=== PATIENT | male | born 1965 | race Caucasian/White ===

== ENCOUNTER 2024-12-26 09:16 | Inpatient (IN) ==
--- NOTE | 2024-12-26 09:31 | DR.SOBA ---
HPI Time Seen Time Seen by Provider: 12/26/24 09:31 COVID-19 Coronavirus risk:travel/contact w/high risk person: No Has patient experienced Coronavirus symptoms: No PMH Travel Risk Coronavirus risk:travel/contact w/high risk person: No Has patient experienced Coronavirus symptoms: No Infectious screening Isolation: Standard PE Vital Signs Vitals: Vital Signs Temperature 98.7 F Pulse Rate 95 Pulse Rate 101 Pulse Rate 97 Pulse Rate 98 Pulse Rate 98 Pulse Rate 94 Pulse Rate 98 Pulse Rate 93 Pulse Rate 100 Pulse Rate 101 Pulse Rate 96 Pulse Rate 103 Pulse Rate 106 Pulse Rate 96 Pulse Rate 98 Pulse Rate 100 Pulse Rate 100 Respiratory Rate 29 Respiratory Rate 33 Respiratory Rate 25 Respiratory Rate 34 Respiratory Rate 34 Respiratory Rate 35 Respiratory Rate 34 Respiratory Rate 35 Respiratory Rate 37 Respiratory Rate 36 Respiratory Rate 35 Respiratory Rate 39 Respiratory Rate 39 Respiratory Rate 39 Respiratory Rate 33 Respiratory Rate 29 Respiratory Rate 33 Blood Pressure 175/98 Blood Pressure 190/90 Blood Pressure 190/90 Blood Pressure 190/90 Blood Pressure 190/90 Blood Pressure 223/95 Blood Pressure 191/104 Blood Pressure 205/108 Blood Pressure 177/96 Blood Pressure 176/92 O2 Sat by Pulse Oximetry 95 O2 Sat by Pulse Oximetry 95 O2 Sat by Pulse Oximetry 94 O2 Sat by Pulse Oximetry 92 O2 Sat by Pulse Oximetry 93 O2 Sat by Pulse Oximetry 92 O2 Sat by Pulse Oximetry 93 O2 Sat by Pulse Oximetry 92 O2 Sat by Pulse Oximetry 94 O2 Sat by Pulse Oximetry 93 O2 Sat by Pulse Oximetry 100 O2 Sat by Pulse Oximetry 88 O2 Sat by Pulse Oximetry 85 O2 Sat by Pulse Oximetry 91 O2 Sat by Pulse Oximetry 92 O2 Sat by Pulse Oximetry 84 O2 Sat by Pulse Oximetry 86 ROR Labs Reviewed 12/26/24 09:42 12/26/24 09:42 Laboratory: WBC 16.0 X10^3/uL (3.6-10.0) H 12/26/24 09:42 RBC 4.47 X10^6/uL (4.7-6.0) L 12/26/24 09:42 Hgb 11.2 g/dL (13.5-18.0) L 12/26/24 09:42 Hct 34.7 % (42.0-54.0) L 12/26/24 09:42 MCV 77.7 fL (80.0-100.0) L 12/26/24 09:42 MCH 25.1 pg (27.0-34.0) L 12/26/24 09:42 MCHC 32.4 g/dL (33.0-35.0) L 12/26/24 09:42 RDW 18.0 % (11.6-16.5) H 12/26/24 09:42 Plt Count 291 X10^3/uL (150.0-450.0) 12/26/24 09:42 MPV 9.3 fL (7.4-11.0) 12/26/24 09:42 Neut % (Auto) 89.7 % (42.0-75.0) H 12/26/24 09:42 Lymph % (Auto) 4.9 % (21.0-51.0) L 12/26/24 09:42 [place] % (Auto) 5.2 % (0.0-13.0) 12/26/24 09:42 Eos % (Auto) 0.2 % (0.9-2.9) L 12/26/24 09:42 Baso % (Auto) 0 % (0.2-1.0) L 12/26/24 09:42 Neut # (Auto) 14.3 x10^3/uL (2.2-4.8) H 12/26/24 09:42 Lymph # (Auto) 0.8 X10^3/uL (1.3-2.9) L 12/26/24 09:42 [place] # (Auto) 0.8 x10^3/uL (0.3-0.8) 12/26/24 09:42 Eos # (Auto) 0.0 x10^3/uL (0.0-0.2) 12/26/24 09:42 Baso # (Auto) 0.0 X10^3/uL (0.0-0.1) 12/26/24 09:42 Absolute Nucleated RBC 0.2 /100WBC 12/26/24 09:42 PT 14.1 SECONDS (11.8-14.3) 12/26/24 09:40 INR Target Range - 12/26/24 09:40 INR 1.11 (0.8-1.3) 12/26/24 09:40 APTT 30.9 SECONDS (22.9-36.5) 12/26/24 09:40 PTT Comment - 12/26/24 09:40 D-Dimer 1.20 ug/ml (0.0-0.57) H 12/26/24 09:42 Sample Site Lr 12/26/24 10:05 ABG pH 7.450 (7.35-7.45) 12/26/24 10:05 ABG pCO2 42.0 mmHg (35.0-45.0) 12/26/24 10:05 ABG pO2 48.0 mmHg (80.0-100.0) L* 12/26/24 10:05 ABG HCO3 29.2 mmol/L (22-26) H 12/26/24 10:05 ABG O2 Saturation 85.0 % (90-100) L 12/26/24 10:05 ABG Base Excess 4.7 mmol/L (-2.0-2.0) H 12/26/24 10:05 Douglas Test Pos 12/26/24 10:05 A-a Gradient 49.0 mmHg 12/26/24 10:05 FiO2 21.0 12/26/24 10:05 Blood Gas Comments Pt padmini well. kg 12/26/24 10:05 Sodium 140 mmol/L (136-145) 12/26/24 09:42 Corrected Sodium 140 mmol/L (136-145) 12/26/24 09:42 Potassium 5.0 mmol/L (3.5-5.1) 12/26/24 09:42 Chloride 105 mmol/L (98-107) 12/26/24 09:42 Carbon Dioxide 28.8 mmol/L (21-32) 12/26/24 09:42 BUN 28 mg/dL (7-18) H 12/26/24 09:42 Creatinine 2.61 mg/dL (0.70-1.30) H 12/26/24 09:42 Est GFR (MDRD) Af Amer 33 (>60) L 12/26/24 09:42 Est GFR (MDRD) Non-Af 27 (>60) L 12/26/24 09:42 Glucose 118 mg/dL (65-99) H 12/26/24 09:42 Calcium 8.7 mg/dL (8.5-10.1) 12/26/24 09:42 Corrected Calcium 10.0 mg/dL (8.5-10.1) 12/26/24 09:42 Total Bilirubin 0.50 mg/dL (0.2-1.0) 12/26/24 09:42 AST 32 Units/L (15-37) 12/26/24 09:42 ALT 40 Units/L (12-78) 12/26/24 09:42 Alkaline Phosphatase 124 Units/L (46-116) H 12/26/24 09:42 Creatine Kinase 75 Units/L (39-308) 12/26/24 09:42 Troponin I High Sens 43.4 ng/L (4.0-60.0) 12/26/24 09:42 B-Natriuretic Peptide 1650 pg/mL (0-79) H 12/26/24 09:42 Total Protein 7.3 g/dL (6.4-8.2) 12/26/24 09:42 Albumin 2.4 g/dL (3.4-5.0) L 12/26/24 09:42 Globulin 4.9 g/dL (2.5-4.5) H 12/26/24 09:42 Albumin/Globulin Ratio 0.5 Ratio (1.1-2.1) L 12/26/24 09:42 Specimen Type Clean catch urine 12/26/24 09:28 Urine Color Yellow (YELLOW) 12/26/24 09:28 Urine Appearance Clear (CLEAR) 12/26/24 09:28 Urine pH 7.0 (5.0 - 8.0) 12/26/24 09:28 Ur Specific [place] 1.010 (1.000-1.030) 12/26/24 09:28 Urine Protein 4+ (NEGATIVE) 12/26/24 09:28 Urine Glucose (UA) Negative (NEGATIVE) 12/26/24 09:28 Urine Ketones Negative (NEGATIVE) 12/26/24 09: Urine Blood 1+ (NEGATIVE) 12/26/24: Urine Nitrite Negative (NEGATIVE) 12/26/24 09:28 Urine Bilirubin Negative (NEGATIVE) 12/26/24 09:28 Urine Urobilinogen Normal (NORMAL) 12/26/24 09:28 Ur Leukocyte Esterase Negative (NEGATIVE) 12/26/24 09:28 Urine RBC 0-2 /HPF (0-3) 12/26/24 09:28 Urine WBC None seen /HPF (0-5) 12/26/24 09:28 Ur Squamous Epith Cells Rare /HPF (NEGATIVE) 12/26/24 09:28 Urine Bacteria Negative /HPF (NEGATIVE) 12/26/24 09:28 Urine Mucus Rare /HPF (NEGATIVE) 12/26/24 09:28 Ur Culture Indicated? No/not indicated 12/26/24 09:28 SARS-CoV-2 (PCR) Negative (NEGATIVE) 12/26/24 09:44 Influenza Type A (PCR) Negative (NEGATIVE) 12/26/24 09:44 Influenza Type B (PCR) Negative (NEGATIVE) 12/26/24 09:44 RSV (PCR) Negative (NEGATIVE) 12/26/24 09:44 Opioid Opioid Risk Tool Age (Andrew box if 16-45): No History of Preadolescent Sexual Abuse: No Total: 0 Total Score Risk Category: Low Risk Copyright: Buster NICHOLS predicting aberrant behaviors Discharge Plan Discharge Plan Patient Disposition: 01 HOME, SELF-CARE Condition: Stable Orders to Discharge Patient Discharge Orders: Transfer (Routine); Ordered 12/26/24 Ordered By: DEISI ADAMS
[2024-12-26 09:40] VITALS: BMI 51.8
[2024-12-26] MEDS: DUONEB 0.5 MG/3 MG (3 mL) NEB ONE (09:51)
[2024-12-26 09:52] LABS: BASOPHILS % (AUTO) 0 % (0.2-1.0); EOSINOPHILS % (AUTO) 0.2 % (0.9-2.9); HEMATOCRIT 34.7 % (42.0-54.0); HEMOGLOBIN 11.2 g/dL (13.5-18.0); LYMPHOCYTES # (AUTO) 0.8 X10^3/uL (1.3-2.9); LYMPHOCYTES % (AUTO) 4.9 % (21.0-51.0); MEAN CORPUSCULAR HEMOGLOBIN 25.1 pg (27.0-34.0); MEAN CORPUSCULAR HGB CONC 32.4 g/dL (33.0-35.0); MEAN CORPUSCULAR VOLUME 77.7 fL (80.0-100.0); MEAN PLATELET VOLUME 9.3 fL (7.4-11.0); MONOCYTES # (AUTO) 0.8 x10^3/uL (0.3-0.8); MONOCYTES % (AUTO) 5.2 % (0.0-13.0); NEUTROPHILS # (AUTO) 14.3 x10^3/uL (2.2-4.8); NEUTROPHILS % (AUTO) 89.7 % (42.0-75.0); PLATELET COUNT 291 X10^3/uL (150.0-450.0); RED BLOOD COUNT 4.47 X10^6/uL (4.7-6.0)
[2024-12-26] MEDS: LASIX IVP ONE (09:52)
[2024-12-26] MEDS: SOLU-Medrol 125 MG VIAL IVP ONE (09:52)
--- NOTE | 2024-12-26 10:00 | EKG ---
Test Reason : HTN Blood Pressure : */* mmHG Vent. Rate : 106 BPM Atrial Rate : 106 BPM P-R Int : 152 ms QRS Dur : 82 ms QT Int : 350 ms P-R-T Axes : 45 -32 75 degrees QTc Int : 464 ms Sinus tachycardia Possible Left atrial enlargement Left axis deviation Anteroseptal infarct , age undetermined Abnormal ECG No previous ECGs available Confirmed by Omari Au MD ([id number]) on 12/26/2024 1:22:18 PM Referred By: Confirmed By: Omari Au MD
[2024-12-26 10:10] LABS: ABG BASE EXCESS 4.7 mmol/L (-2.0-2.0); ABG HCO3 29.2 mmol/L (22-26)
[2024-12-26 10:12] LABS: ABG ALLEN TEST POS
[2024-12-26 10:16] LABS: BILIRUBIN,URINE NEGATIVE (NEGATIVE); BLOOD/HEMOGLOBIN,URINE 1+ (NEGATIVE); GLUCOSE, URINE NEGATIVE (NEGATIVE); KETONES,URINE NEGATIVE (NEGATIVE); LEUKOCYTE ESTERASE ,URINE NEGATIVE (NEGATIVE); NITRITES,URINE NEGATIVE (NEGATIVE); PROTEIN,URINE 4+ (NEGATIVE); UROBILINOGEN,URINE NORMAL (NORMAL)
[2024-12-26 10:17] LABS: ALBUMIN 2.4 g/dL (3.4-5.0); CALCIUM 8.7 mg/dL (8.5-10.1); CARBON DIOXIDE 28.8 mmol/L (21-32); CREATININE 2.61 mg/dL (0.70-1.30); TOTAL PROTEIN 7.3 g/dL (6.4-8.2)
[2024-12-26 10:28] LABS: APPEARANCE,URINE CLEAR (CLEAR); COLOR,URINE YELLOW (YELLOW)
[2024-12-26 10:44] LABS: BACTERIA,URINE NEGATIVE /HPF (NEGATIVE); RBC,URINE 0-2 /HPF (0-3); SQUAMOUS EPITHELIAL CELL,UR RARE /HPF (NEGATIVE)
--- NOTE | 2024-12-26 11:10 | RAD ---
EXAM: CHEST, 1 VIEW HISTORY: SOB; COMPARISON: No relevant prior studies were available for comparison at the time of interpretation. TECHNIQUE: CHEST, 1 VIEW FINDINGS: Chest: Lines and tubes: Cardiac leads overlie the chest. Mediastinum: Cardiomegaly. Pulmonary vessels: There is pulmonary vascular congestion. Lung ramsey: Patchy opacities are seen Pleura: No effusion. No pneumothorax. Bones and soft tissues: No acute osseous or soft tissue abnormality. IMPRESSION: 1. Findings suggest heart failure THIS IS AN ELECTRONICALLY VERIFIED FINAL REPORT 12/26/2024 11:03 AM - Electronically signed by Jim Ware MD
[2024-12-26] MEDS: APRESOLINE INJ 20 MG VIAL IVP ONE (11:21)
[2024-12-26 12:07] LABS: INR 1.11 (0.8-1.3)
[2024-12-26] MEDS: HEPARIN SODIUM IN D5W 25,000 UNITS/500 ML BAG IV PRN (12:48)
[2024-12-26] MEDS: HEPARIN SODIUM INJ 5000 UNITS IVP ONE ×2 (12:48→20:45)
--- NOTE | 2024-12-26 12:50 | VAS ---
EXAM:LEVBILBCHBilateral lower extremity DVT ultrasound examination with Doppler imaging.HISTORY:BLE EDEMA, ELEVATED D-DIMER; . Evaluate for evidence for DVT.Bilateral lower extremity pain and swelling.COMPARISON:: NoneTECHNIQUE:Ultrasound of the deep venous vasculature of the bilateral lower extremities was performed.Color and spectral doppler imaging was utilized for the purposes of this examination as well.FINDINGS:The deep veins of both lower extremities are normal in size and configuration. No intraluminal filling defects are seen on grayscale or color flow imaging.The veins compress normally. Doppler waveforms are normal at rest and with augmentation.IMPRESSION:Negative bilateral lower extremity DVT ultrasound exam(s).THIS IS AN ELECTRONICALLY VERIFIED FINAL REPORT12/26/2024 12:46 PM - Electronically signed by Eliot Zarco MD
[2024-12-26] MEDS: HEPARIN SODIUM IN D5W 25,000 UNITS/500 ML BAG ONE (13:38)
[2024-12-26] MEDS: HEPARIN SODIUM INJ 5000 UNITS ONE (13:38)
[2024-12-26] MEDS: LASIX IVP SCH (16:45)
[2024-12-27 04:33] LABS: ABG BASE EXCESS 5.8 mmol/L (-2.0-2.0)
[2024-12-27 04:34] LABS: ABG ALLEN TEST POS; ABG HCO3 32.1 mmol/L (22-26)
[2024-12-27 05:06] LABS: BASOPHILS # (AUTO) 0.1 X10^3/uL (0.0-0.1); BASOPHILS % (AUTO) 0.9 % (0.2-1.0); EOSINOPHILS % (AUTO) 0.3 % (0.9-2.9); HEMATOCRIT 33.6 % (42.0-54.0); HEMOGLOBIN 10.7 g/dL (13.5-18.0); LYMPHOCYTES # (AUTO) 1.6 X10^3/uL (1.3-2.9); LYMPHOCYTES % (AUTO) 12.5 % (21.0-51.0); MEAN CORPUSCULAR HEMOGLOBIN 24.9 pg (27.0-34.0); MEAN CORPUSCULAR HGB CONC 31.8 g/dL (33.0-35.0); MEAN CORPUSCULAR VOLUME 78.2 fL (80.0-100.0); MEAN PLATELET VOLUME 9.9 fL (7.4-11.0); MONOCYTES # (AUTO) 0.8 x10^3/uL (0.3-0.8); MONOCYTES % (AUTO) 6.7 % (0.0-13.0); NEUTROPHILS # (AUTO) 9.9 x10^3/uL (2.2-4.8); NEUTROPHILS % (AUTO) 79.6 % (42.0-75.0); PLATELET COUNT 244 X10^3/uL (150.0-450.0); RED BLOOD COUNT 4.29 X10^6/uL (4.7-6.0); RED CELL DISTRIBUTION WIDTH 18.3 % (11.6-16.5); WHITE BLOOD COUNT 12.5 X10^3/uL (3.6-10.0)
[2024-12-27 05:31] LABS: ALANINE AMINOTRANSFERASE 32 Units/L (12-78); ALBUMIN 2.1 g/dL (3.4-5.0); ALKALINE PHOSPHATASE 107 Units/L (46-116); ASPARTATE AMINO TRANSFERASE 15 Units/L (15-37); BLOOD UREA NITROGEN 30 mg/dL (7-18); CALCIUM 8.7 mg/dL (8.5-10.1); CARBON DIOXIDE 29.6 mmol/L (21-32); CHLORIDE 105 mmol/L (98-107); COR CA(FOR HYPOALB) 10.2 mg/dL (8.5-10.1); GLUCOSE 108 mg/dL (65-99); MAGNESIUM 2.3 mg/dL (2.0-2.9); POTASSIUM 4.4 mmol/L (3.5-5.1); SODIUM 141 mmol/L (136-145); TOTAL PROTEIN 6.6 g/dL (6.4-8.2); eGFR NON BLACK RACES 27 (>60)
[2024-12-27] MEDS: HEPARIN SODIUM INJ 5000 UNITS IVP ONE (08:00)
--- NOTE | 2024-12-27 08:46 | DR.H&P ---
H&P History & Physical for Day of: H&P Date: 12/26/24 Chief Complaint Chief Complaint: SOB History of Present Illness History of Present Illness: PT IS 59ME, ER ADMISSION AFTER WE WAS SEEN AT CLINIC FOR RESP ILLNESS FOR OVER A WEEK. PT WAS SENT TO ER WITH SOB AND HYPOXIA. PT HAS PMH OF MO AND HTN. PT WAS HYPOXIC ON ABG AND UNABLE TO OBTAIN CTA DUE TO RENAL FUNCTION. PT WAS STARTED ON HEPARIN AND ADMITTED TO ICU FOR EVALUATION AND TREATMENT OF ACUTE ILLNESS. Past Medical History Past Medical History: Hypertension Past Surgical History Surgical History: Ortho Surgery Family History Family Medical History: Diabetes Mellitus, [place], Coronary Artery Disease, Heart Failure and Hypertension Social History Does patient currently use any type of tobacco product: No Type of Tobacco Use: None Does any household member use tobacco: No Alcohol Use: Occasionally Drug Use: None Medications Home Medications: Home Medications Medication Instructions Recorded Confirmed Type amlodipine 10 mg tablet 10 mg PO QDAY 12/26/24 12/26/24 History lisinopril 40 mg tablet 40 mg PO QDAY 12/26/24 12/26/24 History Allergies Allergies Allergy/AdvReac Type Severity Reaction Status Date / Time No Known Allergies Allergy Verified 12/26/24 09:25 Labs 12/27/24 04:20 12/27/24 04:20 Labs: Laboratory WBC 12.5 X10^3/uL (3.6-10.0) H 12/27/24 04:20 RBC 4.29 X10^6/uL (4.7-6.0) L 12/27/24 04:20 Hgb 10.7 g/dL (13.5-18.0) L 12/27/24 04:20 Hct 33.6 % (42.0-54.0) L 12/27/24 04:20 MCV 78.2 fL (80.0-100.0) L 12/27/24 04:20 MCH 24.9 pg (27.0-34.0) L 12/27/24 04:20 MCHC 31.8 g/dL (33.0-35.0) L 12/27/24 04:20 RDW 18.3 % (11.6-16.5) H 12/27/24 04:20 Plt Count 244 X10^3/uL (150.0-450.0) 12/27/24 04:20 MPV 9.9 fL (7.4-11.0) 12/27/24 04:20 Neut % (Auto) 79.6 % (42.0-75.0) H 12/27/24 04:20 Lymph % (Auto) 12.5 % (21.0-51.0) L 12/27/24 04:20 [place] % (Auto) 6.7 % (0.0-13.0) 12/27/24 04:20 Eos % (Auto) 0.3 % (0.9-2.9) L 12/27/24 04:20 Baso % (Auto) 0.9 % (0.2-1.0) 12/27/24 04:20 Neut # (Auto) 9.9 x10^3/uL (2.2-4.8) H 12/27/24 04:20 Lymph # (Auto) 1.6 X10^3/uL (1.3-2.9) 12/27/24 04:20 [place] # (Auto) 0.8 x10^3/uL (0.3-0.8) 12/27/24 04:20 Eos # (Auto) 0.0 x10^3/uL (0.0-0.2) 12/27/24 04:20 Baso # (Auto) 0.1 X10^3/uL (0.0-0.1) 12/27/24 04:20 Absolute Nucleated RBC 0.1 /100WBC 12/27/24 04:20 PT 14.1 SECONDS (11.8-14.3) 12/26/24 09:40 INR Target Range - 12/26/24 09:40 INR 1.11 (0.8-1.3) 12/26/24 09:40 APTT 58.4 SECONDS (22.9-36.5) H 12/27/24 07:10 PTT Comment - 12/27/24 07:10 D-Dimer 1.20 ug/ml (0.0-0.57) H 12/26/24 09:42 Sample Site Lr 12/27/24 04:27 ABG pH 7.390 (7.35-7.45) 12/27/24 04:27 ABG pCO2 53.0 mmHg (35.0-45.0) H* 12/27/24 04:27 ABG pO2 58.0 mmHg (80.0-100.0) L 12/27/24 04:27 ABG HCO3 32.1 mmol/L (22-26) H* 12/27/24 04:27 ABG O2 Saturation 89.0 % (90-100) L 12/27/24 04:27 ABG Base Excess 5.8 mmol/L (-2.0-2.0) H 12/27/24 04:27 Douglas Test Pos 12/27/24 04:27 A-a Gradient 132.0 mmHg 12/27/24 04:27 FiO2 36.0 12/27/24 04:27 Blood Gas Comments Matt well ae 12/27/24 04:27 Sodium 141 mmol/L (136-145) 12/27/24 04:20 Corrected Sodium TNP 12/27/24 04:20 Potassium 4.4 mmol/L (3.5-5.1) 12/27/24 04:20 Chloride 105 mmol/L (98-107) 12/27/24 04:20 Carbon Dioxide 29.6 mmol/L (21-32) 12/27/24 04:20 BUN 30 mg/dL (7-18) H 12/27/24 04:20 Creatinine 2.60 mg/dL (0.70-1.30) H 12/27/24 04:20 Est GFR (MDRD) Af Amer 33 (>60) L 12/27/24 04:20 Est GFR (MDRD) Non-Af 27 (>60) L 12/27/24 04:20 Glucose 108 mg/dL (65-99) H 12/27/24 04:20 Calcium 8.7 mg/dL (8.5-10.1) 12/27/24 04:20 Corrected Calcium 10.2 mg/dL (8.5-10.1) H 12/27/24 04:20 Magnesium 2.3 mg/dL (2.0-2.9) 12/27/24 04:20 Total Bilirubin 0.30 mg/dL (0.2-1.0) 12/27/24 04:20 AST 15 Units/L (15-37) 12/27/24 04:20 ALT 32 Units/L (12-78) 12/27/24 04:20 Alkaline Phosphatase 107 Units/L (46-116) 12/27/24 04:20 Creatine Kinase 75 Units/L (39-308) 12/26/24 09:42 Troponin I High Sens 43.4 ng/L (4.0-60.0) 12/26/24 09:42 B-Natriuretic Peptide 1200 pg/mL (0-79) H 12/27/24 04:20 Total Protein 6.6 g/dL (6.4-8.2) 12/27/24 04:20 Albumin 2.1 g/dL (3.4-5.0) L 12/27/24 04:20 Globulin 4.5 g/dL (2.5-4.5) 12/27/24 04:20 Albumin/Globulin Ratio 0.5 Ratio (1.1-2.1) L 12/27/24 04:20 Specimen Type Clean catch urine 12/26/24 09:28 Urine Color Yellow (YELLOW) 12/26/24 09: Urine Appearance Clear (CLEAR) 12/26/24 09: Urine pH 7.0 (5.0 - 8.0) 12/26/24 09:28 Ur Specific [place] 1.010 (1.000-1.030) 12/26/24 09:28 Urine Protein 4+ (NEGATIVE) 12/26/24 09: Urine Glucose (UA) Negative (NEGATIVE) 12/26/24 09: Urine Ketones Negative (NEGATIVE) 12/26/24 09: Urine Blood 1+ (NEGATIVE) 12/26/24 09: Urine Nitrite Negative (NEGATIVE) 12/26/24 09: Urine Bilirubin Negative (NEGATIVE) 12/26/24 09:28 Urine Urobilinogen Normal (NORMAL) 12/26/24 09:28 Ur Leukocyte Esterase Negative (NEGATIVE) 12/26/24 09: Urine RBC 0-2 /HPF (0-3) 12/26/24 09: Urine WBC None seen /HPF (0-5) 12/26/24 09:28 Ur Squamous Epith Cells Rare /HPF (NEGATIVE) 12/26/24 09:28 Urine Bacteria Negative /HPF (NEGATIVE) 12/26/24 09: Urine Mucus Rare /HPF (NEGATIVE) 12/26/24 09: Ur Culture Indicated? No/not indicated 12/26/24 09:28 SARS-CoV-2 (PCR) Negative (NEGATIVE) 12/26/24 09:44 Influenza Type A (PCR) Negative (NEGATIVE) 12/26/24 09:44 Influenza Type B (PCR) Negative (NEGATIVE) 12/26/24 09:44 RSV (PCR) Negative (NEGATIVE) 12/26/24 09:44 Review of Systems Constitutional: No Symptoms Reported, Chills, Weakness and Malaise Eyes: No Symptoms Reported ENT: No Symptoms Reported Respiratory: Cough, Shortness of Breath, SOB with Excertion and Wheezing Cardiovascular: Edema Gastrointestinal: No Symptoms Reported Genitourinary: No Symptoms Reported Musculoskeletal: Back Pain Skin: No Symptoms Reported Neurological: No Symptoms Reported Physical Exam Vital Signs: Vital Signs Temperature 98.4 F Pulse Rate 104 Pulse Rate 88 Pulse Rate 88 Pulse Rate 96 Pulse Rate 70 Pulse Rate 76 Pulse Rate 90 Pulse Rate 90 Pulse Rate 88 Pulse Rate 93 Pulse Rate 81 Pulse Rate 81 Pulse Rate 77 Pulse Rate 90 Pulse Rate 69 Pulse Rate 84 Pulse Rate 87 Pulse Rate 82 Pulse Rate 84 Pulse Rate 90 Pulse Rate 82 Pulse Rate 89 Pulse Rate 88 Pulse Rate 88 Pulse Rate 72 Pulse Rate 81 Pulse Rate 72 Pulse Rate 78 Pulse Rate 76 Pulse Rate 80 Pulse Rate 83 Pulse Rate 86 Pulse Rate 83 Pulse Rate 82 Pulse Rate 83 Pulse Rate 75 Pulse Rate 86 Pulse Rate 95 Pulse Rate 95 Pulse Rate 69 Respiratory Rate 21 Respiratory Rate 23 Respiratory Rate 25 Respiratory Rate 23 Respiratory Rate 25 Respiratory Rate 24 Respiratory Rate 20 Respiratory Rate 29 Respiratory Rate 18 Respiratory Rate 24 Respiratory Rate 23 Respiratory Rate 18 Respiratory Rate 22 Respiratory Rate 17 Respiratory Rate 24 Respiratory Rate 22 Respiratory Rate 23 Respiratory Rate 22 Respiratory Rate 21 Respiratory Rate 23 Respiratory Rate 29 Respiratory Rate 22 Respiratory Rate 20 Respiratory Rate 22 Respiratory Rate 21 Respiratory Rate 21 Respiratory Rate 25 Respiratory Rate 22 Respiratory Rate 24 Respiratory Rate 20 Respiratory Rate 24 Respiratory Rate 22 Respiratory Rate 24 Respiratory Rate 21 Respiratory Rate 21 Respiratory Rate 21 Respiratory Rate 20 Respiratory Rate 23 Respiratory Rate 33 Respiratory Rate 25 Blood Pressure 135/82 Blood Pressure 119/58 Blood Pressure 119/58 Blood Pressure 138/86 Blood Pressure 138/86 Blood Pressure 124/58 Blood Pressure 152/101 Blood Pressure 170/105 Blood Pressure 181/111 Blood Pressure 181/111 Blood Pressure 124/58 Blood Pressure 152/72 Blood Pressure 152/72 Blood Pressure 153/76 Blood Pressure 153/76 Blood Pressure 153/76 Blood Pressure 165/96 Blood Pressure 181/111 Blood Pressure 165/96 O2 Sat by Pulse Oximetry 94 O2 Sat by Pulse Oximetry 93 O2 Sat by Pulse Oximetry 93 O2 Sat by Pulse Oximetry 71 O2 Sat by Pulse Oximetry 92 O2 Sat by Pulse Oximetry 88 O2 Sat by Pulse Oximetry 93 O2 Sat by Pulse Oximetry 93 O2 Sat by Pulse Oximetry 94 O2 Sat by Pulse Oximetry 91 O2 Sat by Pulse Oximetry 93 O2 Sat by Pulse Oximetry 94 O2 Sat by Pulse Oximetry 92 O2 Sat by Pulse Oximetry 94 O2 Sat by Pulse Oximetry 91 O2 Sat by Pulse Oximetry 93 O2 Sat by Pulse Oximetry 93 O2 Sat by Pulse Oximetry 93 O2 Sat by Pulse Oximetry 95 O2 Sat by Pulse Oximetry 95 O2 Sat by Pulse Oximetry 93 O2 Sat by Pulse Oximetry 94 O2 Sat by Pulse Oximetry 95 O2 Sat by Pulse Oximetry 91 O2 Sat by Pulse Oximetry 91 O2 Sat by Pulse Oximetry 90 O2 Sat by Pulse Oximetry 91 O2 Sat by Pulse Oximetry 90 O2 Sat by Pulse Oximetry 91 O2 Sat by Pulse Oximetry 91 O2 Sat by Pulse Oximetry 93 O2 Sat by Pulse Oximetry 91 O2 Sat by Pulse Oximetry 93 O2 Sat by Pulse Oximetry 92 O2 Sat by Pulse Oximetry 93 O2 Sat by Pulse Oximetry 94 O2 Sat by Pulse Oximetry 95 O2 Sat by Pulse Oximetry 94 O2 Sat by Pulse Oximetry 94 O2 Sat by Pulse Oximetry 93 Oriented: Normal Eyes: Normal Ear: Normal Nose: Discharge Throat: Dry Respiratory: Diminished Throughout and Wheezes Throughout Cardiovascular: Tachycardia and Edema Auscultation: Bowel Sounds: Normal Tenderness: Normal Skin: Decreased Turgur Musculoskeletal: Back:Lumbar Psychiatric: Anxiety Mood Description: Anxious Affect: Anxious Speech Pattern: Clear and Appropriate Assessment/Plan (1) Dyspnea: Status: Acute Plan: ADMIT, ICU WITH HEPARIN DRIP VQ SCAN TO RO PE CXR ON ADMISSION REPEAT AM ABG, SUPPLEMENTAL O2, BP CONTROL CARDIAC MONITORING, IV ATBX, IV HYDRATION WITH I&OS (2) Hypoxia: Status: Acute (3) Acute CHF: Status: Acute (4) Elevated d-dimer: Status: Acute (5) HTN (hypertension): Status: Acute (6) Acute on chronic renal failure: Status: Acute
[2024-12-27] MEDS: NORVASC TAB 10 MG PO SCH (08:56)
[2024-12-27] MEDS: ZITHROMAX INJ 500 MG VIAL 500 MG in D5W 250 ML IV 250 ML IV SCH (09:33)
[2024-12-27] MEDS: NS 1,000 ML IV 1,000 ML IV SCH (09:33)
[2024-12-27] MEDS: SOLU-Medrol 125 MG VIAL IVP SCH (09:34)
[2024-12-27] MEDS: PROTONIX INJ 40 MG VIAL IVP SCH (09:34)
[2024-12-27] MEDS: ROBITUSSIN DM PO SCH (09:34)
[2024-12-27] MEDS: FLOMAX PO SCH (09:34)
--- NOTE | 2024-12-27 16:45 | NM ---
EXAM: VQ/VENTILLATION & PERFUSION SC HISTORY: HYPOXIA, ELEVATED D DIMER, SOB,HTN, ; COMPARISON: Chest radiograph from December 26, 2024 TECHNIQUE: Multi-planar lung perfusion imaging was performed after the intravenous administration of 5.2 mCi Tc- MAA. Multi-planar lung perfusion imaging was performed after the intravenous administration of 31.2 mCi Tc -DTPA. FINDINGS: Homogenous radionuclide uptake throughout the lung parenchyma both on ventilation and perfusion imagi ng. IMPRESSION: Very low probability of a pulmonary embolus. THIS IS AN ELECTRONICALLY VERIFIED FINAL REPORT 12/27/2024 4:36 PM - Electronically signed by Marcus Fletcher MD
[2024-12-27] MEDS ORDERED: PHARMACY CONSULT - LOVENOX XX SCH (18:00)
[2024-12-27] MEDS: DUONEB 0.5 MG/3 MG (3 mL) NEB PRN (20:06)
[2024-12-27] MEDS: LOVENOX INJ 40 MG SYR SC SCH (21:25)
[2024-12-28 04:54] LABS: BASOPHILS % (AUTO) 0.2 % (0.2-1.0); HEMATOCRIT 33.2 % (42.0-54.0); HEMOGLOBIN 10.4 g/dL (13.5-18.0); LYMPHOCYTES # (AUTO) 0.6 X10^3/uL (1.3-2.9); LYMPHOCYTES % (AUTO) 5.2 % (21.0-51.0); MEAN CORPUSCULAR HEMOGLOBIN 24.9 pg (27.0-34.0); MEAN CORPUSCULAR HGB CONC 31.4 g/dL (33.0-35.0); MEAN CORPUSCULAR VOLUME 79.4 fL (80.0-100.0); MEAN PLATELET VOLUME 10.1 fL (7.4-11.0); MONOCYTES # (AUTO) 0.2 x10^3/uL (0.3-0.8); MONOCYTES % (AUTO) 1.7 % (0.0-13.0); NEUTROPHILS # (AUTO) 10.7 x10^3/uL (2.2-4.8); NEUTROPHILS % (AUTO) 92.9 % (42.0-75.0); PLATELET COUNT 260 X10^3/uL (150.0-450.0); RED BLOOD COUNT 4.18 X10^6/uL (4.7-6.0); RED CELL DISTRIBUTION WIDTH 18.2 % (11.6-16.5); WHITE BLOOD COUNT 11.5 X10^3/uL (3.6-10.0)
[2024-12-28 05:07] LABS: ALBUMIN 2.2 g/dL (3.4-5.0); CALCIUM 8.4 mg/dL (8.5-10.1); CARBON DIOXIDE 28.9 mmol/L (21-32); COR CA(FOR HYPOALB) 9.8 mg/dL (8.5-10.1); CREATININE 3.04 mg/dL (0.70-1.30); POTASSIUM 4.6 mmol/L (3.5-5.1); TOTAL PROTEIN 6.8 g/dL (6.4-8.2)
[2024-12-28 05:31] LABS: ABG BASE EXCESS 4.4 mmol/L (-2.0-2.0)
[2024-12-28 05:33] LABS: ABG ALLEN TEST POS; ABG HCO3 31.1 mmol/L (22-26)
[2024-12-28 05:57] LABS: PLATELET MORPHOLOGY COMMENT NORMAL (NORMAL)
[2024-12-28 05:58] LABS: ANISOCYTOSIS 2+; STOMATOCYTES 1+; TARGET CELLS SLIGHT; TEAR DROP CELLS SLIGHT
[2024-12-28 11:06] LABS: CHOL/HDL RATIO 3.9 (0.0-5.0)
--- NOTE | 2024-12-28 11:52 | RAD ---
EXAM:CHEST, 1 VIEWHISTORY:CHF;COMPARISON:No relevant prior studies were available for comparison at the time of interpretation.TECHNIQUE:CHEST, 1 VIEWFINDINGS:Chest:Lines and tubes: Cardiac leads overlie the chest.Mediastinum: Cardiomegaly.Pulmonary vessels: There is pulmonary vascular congestion.Lung ramsey: Patchy opacities are seenPleura: No effusion. No pneumothorax.Bones and soft tissues: No acute osseous or soft tissue abnormality.IMPRESSION:1. Heart failureTHIS IS AN ELECTRONICALLY VERIFIED FINAL REPORT12/28/2024 11:49 AM - Electronically signed by Jim Ware MD
--- NOTE | 2024-12-28 12:56 | DR.CONSULT ---
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- been sob for few weeks now- no cp- found to be in chf Past Medical History Past Medical History: Hypertension Past Surgical History Surgical History: Ortho Surgery Family History Family Medical History: Diabetes Mellitus, [place], Coronary Artery Disease, Heart Failure and Hypertension Social History Does patient currently use any type of tobacco product: No Type of Tobacco Use: None Does any household member use tobacco: No Alcohol Use: Occasionally Drug Use: None Medications Home Medications: No Known Allergies Allergy (Verified 12/26/24 09:25) CONTINUE taking the following medications amlodipine 10 mg tablet 10 mg PO QDAY 12/26/24 [History] lisinopril 40 mg tablet 40 mg PO QDAY 12/26/24 [History] Physical Exam Vital Signs: Vital Signs Temperature 98.5 F Temperature 98.5 F Pulse Rate 97 Pulse Rate 74 Pulse Rate 79 Pulse Rate 73 Pulse Rate 78 Respiratory Rate 24 Respiratory Rate 21 Respiratory Rate 24 Respiratory Rate 21 Respiratory Rate 22 Blood Pressure 156/92 Blood Pressure 115/63 Blood Pressure 139/92 Blood Pressure 127/79 Blood Pressure 132/63 O2 Sat by Pulse Oximetry 94 O2 Sat by Pulse Oximetry 92 O2 Sat by Pulse Oximetry 94 O2 Sat by Pulse Oximetry 93 O2 Sat by Pulse Oximetry 93 over 400 lbs- few crackles rrr soft erick 1 plus B edema labs: hct 33 mcv 79, abg 7.36 co2 55 o2 45 79% d dimer: 1.2 hi cr 2.6 up to 3 w diuresis, bnp 1200 to 830, trop negative TC 223 tg 154 ldl 135 ekg: ant mi old v/q: low risk of pE doppler legs : no dvt cxr: cm/chf echo: ef 25-30% ant wall motion abnormality Plan (1) Dyspnea: Status: Acute (2) Hypoxia: Status: Acute (3) Acute CHF: Status: Acute (4) Elevated d-dimer: Status: Acute (5) HTN (hypertension): Status: Acute (6) Acute on chronic renal failure: Status: Acute Plan: careful with diuresis/worsening kidney function (7) CAD (coronary artery disease): Status: Acute Narrative Support Text: ekg suggests ant mi/echo too Plan: [id number]- no entresto/nkechi due to kidneys at this time (8) Cardiomyopathy: Status: Acute (9) Hyperlipidemia: Status: Acute Plan: add statin jennifer w prob cad
[2024-12-28] MEDS: ASPIRIN 81 MG CHEWTAB PO SCH (13:37)
[2024-12-28] MEDS: COREG TAB 3.125 MG PO SCH (13:38)
[2024-12-28] MEDS: CRESTOR TAB 10 MG PO SCH (21:01)
[2024-12-29 04:56] LABS: BASOPHILS % (AUTO) 0.1 % (0.2-1.0); HEMOGLOBIN 10.4 g/dL (13.5-18.0); LYMPHOCYTES # (AUTO) 0.8 X10^3/uL (1.3-2.9); LYMPHOCYTES % (AUTO) 6.5 % (21.0-51.0); MEAN CORPUSCULAR HEMOGLOBIN 24.9 pg (27.0-34.0); MEAN CORPUSCULAR HGB CONC 31.4 g/dL (33.0-35.0); MEAN CORPUSCULAR VOLUME 79.1 fL (80.0-100.0); MEAN PLATELET VOLUME 10.1 fL (7.4-11.0); MONOCYTES # (AUTO) 0.2 x10^3/uL (0.3-0.8); MONOCYTES % (AUTO) 1.5 % (0.0-13.0); NEUTROPHILS % (AUTO) 91.9 % (42.0-75.0); PLATELET COUNT 244 X10^3/uL (150.0-450.0); RED BLOOD COUNT 4.18 X10^6/uL (4.7-6.0); RED CELL DISTRIBUTION WIDTH 17.8 % (11.6-16.5); WHITE BLOOD COUNT 11.9 X10^3/uL (3.6-10.0)
[2024-12-29 05:29] LABS: ALBUMIN 2.2 g/dL (3.4-5.0); CALCIUM 8.4 mg/dL (8.5-10.1); CARBON DIOXIDE 29.5 mmol/L (21-32); COR CA(FOR HYPOALB) 9.8 mg/dL (8.5-10.1); CREATININE 3.04 mg/dL (0.70-1.30); POTASSIUM 5.3 mmol/L (3.5-5.1); TOTAL PROTEIN 6.5 g/dL (6.4-8.2)
[2024-12-29 06:42] LABS: ANISOCYTOSIS SLIGHT; HYPOCHROMASIA SLIGHT; MICROCYTOSIS SLIGHT; PLATELET MORPHOLOGY COMMENT NORMAL (NORMAL)
[2024-12-29 08:40] LABS: ABG ALLEN TEST POS; ABG HCO3 28.2 mmol/L (22-26)
[2024-12-29] MEDS: LASIX IVP SCH (09:06)
[2024-12-29] MEDS: LOVENOX INJ 40 MG SYR SC SCH (09:12)
--- NOTE | 2024-12-29 13:31 | NOTE.SOAP ---
Soap Note Note for Day of Date of Exam: 12/29/24 Subjective Data Subjective Data: still sob/good urine output Objective Data Objective Data: i/o -1500 lungs : few crackles edema- improved labs: hct 33 ab.36 co2 50 o2 54 - 86% on 4l bun up to 50, cr 3.04 K 5.3 tele: 8 beat run of irreg rhythm/rbbb suspect aberrancy Assessment Assessment: renal failure/chf/prob cad/decreased ef- copd/lung issues Plan Plan: on asa/coreg/ccb/statin- no entresto due to kidneys-being tranferred to [facility] for pulm/nephro/cardio- appropriate- cont current meds as just started yesterday
--- NOTE | 2024-12-29 18:41 | RAD ---
EXAMINATION: CHEST, 1 VIEW HISTORY: chf; CHF, HTN, . COMPARISON STUDY: Chest x-ray 12/28/2024 TECHNIQUE: 2 frontal views of the chest FINDINGS: Mrfy-uh-[place] cardiac silhouette enlargement. Mild pulmonary vascular congestion. Patchy alveola r infiltrates mid and lower lung ramsey. Visualized bones appear intact. Details limited by the pat ient's body habitus. IMPRESSION: Bilateral pulmonary infiltrates. Cardiac silhouette enlargement with mild pulmonary vascular congest ion. THIS IS AN ELECTRONICALLY VERIFIED FINAL REPORT 12/29/2024 6:37 PM - Electronically signed by Chelsie Calloway MD
[2024-12-29 20:24] VITALS: TEMP 98.2
[2024-12-29 20:28] VITALS: BP 151/83; PULSE 80; RESP 28; O2SAT 90
== END 2024-12-29 20:10 | disposition critical access hospital (66) | DRG 291 ==
LOC: ER 09:16 → ICU 12:37
PROVIDERS: ADMIT Internal Medicine; ATTEND Internal Medicine
DX: N18.9 Chronic kidney disease, unspecified; R09.02 Hypoxemia; I13.0 Hypertensive heart and chronic kidney disease with heart failure and stage 1 through stage 4 chronic kidney disease, or unspecified chronic kidney disease; J18.8 Other pneumonia, unspecified organism; Z03.818 Encounter for observation for suspected exposure to other biological agents ruled out; R00.0 Tachycardia, unspecified; E66.01 Morbid (severe) obesity due to excess calories; R06.02 Shortness of breath; R60.0 Localized edema; I42.9 Cardiomyopathy, unspecified; E78.5 Hyperlipidemia, unspecified; N17.8 Other acute kidney failure; R79.1 Abnormal coagulation profile; I25.10 Atherosclerotic heart disease of native coronary artery without angina pectoris; Z68.42 Body mass index [BMI] 45.0-49.9, adult; R94.31 Abnormal electrocardiogram [ECG] [EKG]; I50.9 Heart failure, unspecified